=== PATIENT | female | born 1995 | race Caucasian/White ===

== ENCOUNTER 2021-06-06 08:53 | Day surgery (SDC) | payer OTHER ==
[2021-06-03 08:26] VITALS: BMI 20.5
[~2021-06-06 08:53] MED LIST: LACTATED RINGERS 1,000 ML IV SCH
[2021-06-06 09:30] VITALS: BP 141/88; PULSE 69; RESP 16; TEMP 97.4
== END 2021-06-06 09:55 | disposition home or self-care (01) ==
LOC: ORWHC2ENDO 08:53 → MERGE 08:53 → ORWHC2ENDO 09:55
PROVIDERS: ATTEND Surgery
DX: K62.5 Hemorrhage of anus and rectum (principal); Z53.8 Procedure and treatment not carried out for other reasons

== ENCOUNTER 2022-02-14 08:00 | Inpatient (IN) | payer OTHER ==
[2022-02-15] MEDS ORDERED: TERBUTALINE 1 MG/ML VIAL SQ PRN (06:37)
[2022-02-15] MEDS ORDERED: LIDOCAINE 0.5% (PF) 5 MG/ML (50 ML SDV) SQ PRN (06:37)
[2022-02-15] MEDS ORDERED: OXYTOCIN 10 UNIT/ML 1 ML VIAL IM PRN (06:37)
[2022-02-15] MEDS ORDERED: CARBOPROST TROMETHAMINE 250 MCG/ML 1 ML AMP IM PRN (06:37)
[2022-02-15] MEDS ORDERED: METHYLERGONOVINE 0.2 MG/ML 1 ML AMP IM PRN (06:37)
[2022-02-15] MEDS ORDERED: OXYTOCIN 30 UNITS/500 ML NS 30 UNIT in SALINE 1 500ML.BAG IV SCH ×2 (06:45→15:30)
[2022-02-15] MEDS: LACTATED RINGERS 1,000 ML IV SCH ×3 (06:53→12:55)
[2022-02-15 07:25] LABS: Basophils # (A) 0.1 k/uL (0-0.2); Basophils % (A) 1 %; Eosinophils # (A) 0.4 k/uL (0-0.7); Eosinophils % (A) 3 %; HCT 34.6 % (34.0-46.0); HGB 11.4 gm/dL (11.4-16.0); Lymphocytes % (A) 17 %; MCH 31.6 pg (25.0-35.0); MCV 95.8 fL (80.0-100.0); Mean Platelet Volume 10.2; Monocytes # (A) 0.6 k/uL (0-1.0); Monocytes % (A) 5 %; Neutrophils # (A) 8.7 k/uL (1.3-7.7); Neutrophils % (A) 73 %; Platelet Count 176 k/uL (150-450); RBC 3.61 m/uL (3.80-5.40); RDW 13.4 % (11.5-15.5); WBC 11.9 k/uL (3.8-10.6)
--- NOTE | 2022-02-15 07:33 | P.HPOB ---
History of Present Illness H&P Date: 02/15/22 Chief Complaint: induction of labor 26 year old G to P1 presents at 39 weeks and 3 days for induction of labor. Her cervix is 2 cm, 70% effaced, -2 station. She is clarice irregularly. heart tones are 135 with moderate variability and reactive. Patient did have a with her last after getting 8 cm. We discussed risks and benefits and alternatives of vaginal after . Patient understands the risks and will continue with induction. Review of Systems All systems: negative Constitutional: Denies chills, Denies fever Eyes: denies blurred vision, denies pain Ears, nose, mouth and throat: Denies headache, Denies sore throat Cardiovascular: Denies chest pain, Denies shortness of breath Respiratory: Denies cough Gastrointestinal: Denies abdominal pain, Denies diarrhea, Denies nausea, Denies vomiting Genitourinary: Denies dysuria, Denies hematuria Musculoskeletal: Denies myalgias Integumentary: Denies pruritus, Denies rash Neurological: Denies numbness, Denies weakness Psychiatric: Denies anxiety, Denies depression Endocrine: Denies fatigue, Denies weight change Past Medical History Past Medical History: No Reported History Additional Past Medical History / Comment(s): Hx low iron and Hx Chase. History of Any Multi-Drug Resistant Organisms: None Reported Past Surgical History: Section Additional Past Surgical History / Comment(s): Section X1. Past Anesthesia/Blood Transfusion Reactions: No Reported Reaction Past Psychological History: No Psychological Hx Reported Smoking Status: Current every day smoker Past Alcohol Use History: Occasional Additional Past Alcohol Use History / Comment(s): Has been smoking for 6 months, 1/2 PPD. Past Drug Use History: None Reported - Past Family History Mother Family Medical History: Cancer, Diabetes Mellitus, Hypertension Additional Family Medical History / Comment(s): Skin cancer. Medications and Allergies Home Medications Medication Instructions Recorded Confirmed Type Vit No.179/Iron/Folic 1 tab PO DAILY 02/15/22 02/15/22 History [ Tablet] Allergies Allergy/AdvReac Type Severity Reaction Status Date / Time Antibiotic(Can't remember Allergy Rash/Hives Uncoded 02/15/22 06:35 name) Exam Osteopathic Statement: *. No significant issues noted on an osteopathic structural exam other than those noted in the History and Physical/Consult. Vital Signs Temp Pulse Resp BP 02/15/22 06:18 98.4 F 82 18 115/67 Intake and Output 02/14/22 02/15/22 02/15/22 22:59 06:59 14:59 Other: Weight 68.039 kg Heart: Regular rate and rhythm Lungs: Clear to auscultation bilaterally Abdomen: Soft, nontender Extremities: Negative Homans sign Results Result Diagrams: 02/15/22 06:50 Abnormal Lab Results - Last 24 Hours (Table) 02/15/22 Range/Units 06:50 WBC 11.9 H (3.8-10.6) k/uL RBC 3.61 L (3.80-5.40) m/uL Neutrophils # 8.7 H (1.3-7.7) k/uL Assessment and Plan (1) Previous section Current Visit: Yes Status: Acute Code(s): Z98.891 - HISTORY OF UTERINE SCAR FROM PREVIOUS SURGERY SNOMED Code(s): 123521013 (2) 39 weeks gestation of Current Visit: Yes Status: Acute Code(s): Z3A.39 - 39 WEEKS GESTATION OF SNOMED Code(s): 90307800 Plan: 1. Induction of labor with amniotomy and Pitocin 2. Anticipate normal vaginal delivery
[2022-02-15] MEDS ORDERED: ROPIVACAINE 100 MG, fentaNYL (PF). 200 MCG in SODIUM CHLORIDE 0.9% 76 ML EPIDURAL ONE (13:08)
[2022-02-15] MEDS ORDERED: diphenhydrAMINE 25 MG CAP PO PRN (15:24)
[2022-02-15] MEDS ORDERED: BENZOCAINE/MENTHOL SPRAY 1 GM/SPRAY AEROSOL TOPICAL PRN (15:24)
[2022-02-15] MEDS ORDERED: diphenhydrAMINE 50 MG/ML 1 ML VIAL IVP PRN ×2 (15:24)
[2022-02-15] MEDS ORDERED: ZOLPIDEM 5 MG TAB PO PRN (15:24)
[2022-02-15] MEDS ORDERED: SIMETHICONE 80 MG CHEWABLE PO PRN (15:24)
[2022-02-15] MEDS ORDERED: diphenhydrAMINE 50 MG CAP PO PRN (15:24)
[2022-02-15] MEDS ORDERED: HYDROCORTISONE 2.5% RECTAL CREAM 30 GM TUBE RECTAL PRN (15:24)
[2022-02-15] MEDS ORDERED: LANOLIN CREAM 5 GM TUBE TOPICAL PRN (15:24)
[2022-02-15] MEDS: IBUPROFEN 600 MG TAB PO PRN (15:47)
[2022-02-15] MEDS: ACETAMINOPHEN TAB 325 MG TAB PO PRN (20:04)
[2022-02-15] MEDS: SENNOSIDES-DOCUSATE SODIUM 1 EACH TAB PO SCH (20:04)
[2022-02-15 20:50] VITALS: PULSE 72
[2022-02-16] MEDS: IBUPROFEN 600 MG TAB PO PRN (04:18)
[2022-02-16] MEDS: LACTATED RINGERS 1,000 ML IV SCH (06:29)
[2022-02-16] MEDS: SENNOSIDES-DOCUSATE SODIUM 1 EACH TAB PO SCH (07:57)
[2022-02-16 08:18] LABS: Basophils % (A) 0 %; Eosinophils # (A) 0.2 k/uL (0-0.7); Eosinophils % (A) 1 %; HCT 28.8 % (34.0-46.0); Lymphocytes # (A) 2.1 k/uL (1.0-4.8); Lymphocytes % (A) 16 %; MCH 33.3 pg (25.0-35.0); MCHC 34.4 g/dL (31.0-37.0); MCV 97.1 fL (80.0-100.0); Mean Platelet Volume 10.2; Monocytes # (A) 0.5 k/uL (0-1.0); Monocytes % (A) 4 %; Neutrophils # (A) 9.5 k/uL (1.3-7.7); Neutrophils % (A) 76 %; Platelet Count 167 k/uL (150-450); RBC 2.97 m/uL (3.80-5.40); RDW 13.9 % (11.5-15.5); WBC 12.5 k/uL (3.8-10.6)
[2022-02-16 08:22] LABS: HGB 9.9 gm/dL (11.4-16.0)
--- NOTE | 2022-02-16 09:17 | P.PROBDLV ---
Vaginal Delivery Note - . Vaginal Delivery Note: 26 year old G 2 P1 presents at 39 weeks and 3 days for induction of labor. Her cervix is 2 cm, 70% effaced, -2 station. She is clarice irregularly. heart tones are 135 with moderate variability and reactive. Pitocin was started and amniotomy performed at 7:10 AM clear fluid noted. Patient was uncomfortable and did get an epidural. Cervix was completely dilated at 1445. She pushed, delivered a viable female infant over intact perineum under epidural anesthesia at 1455. Head delivered OA, nuchal cord 1 easily reduced, anterior shoulder delivered gentle downward guidance followed by posterior shoulder and rest of body. Nose and mouth bulb suctioned cord clamped and cut, infant placed mother's abdomen. Apgars 9, 9, weight 6 lbs. 10 oz. Placenta delivered spontaneously, intact with three-vessel cord at 1457. Vagina, cervix, and perineum were inspected. First-degree right perineal laceration and bilateral labial lacerations repaired with 3-0 Vicryl. Estimated blood loss 200 mL. Mother and baby in stable condition.
--- NOTE | 2022-02-16 09:18 | P.DS ---
Providers Date of admission: 02/15/22 06:05 Expected date of discharge: 02/16/22 Attending physician: Francisca Seth Primary care physician: Stated None - Discharge Diagnosis(es) (1) Previous section Current Visit: Yes Status: Resolved (2) 39 weeks gestation of Current Visit: Yes Status: Resolved (3) Vaginal after Current Visit: Yes Status: Acute Hospital Course: Patient presented for induction of labor. Generally normal vaginal delivery. course on, K. She denies nausea, vomiting, chest pain, shortness of breath or any calf pain. Patient will be discharged home day #1 in stable condition to follow-up with me in 6 weeks. Plan - Discharge Summary New Discharge Prescriptions: New Ibuprofen [Motrin] 600 mg PO Q6HR PRN #30 tab PRN Reason: Mild Pain (Scale 1 To 3) No Action Vit No.179/Iron/Folic [ Tablet] 1 tab PO DAILY Discharge Medication List Vit No.179/Iron/Folic [ Tablet] 1 tab PO DAILY 02/15/22 [History] Ibuprofen [Motrin] 600 mg PO Q6HR PRN #30 tab 02/16/22 [Rx] Follow up Appointment(s)/Referral(s): Francisca Seth DO [Doctor of Osteopathic Medicine] - 04/03/22 3:45 pm Discharge Disposition: HOME SELF-CARE
[2022-02-16 09:45] VITALS: BP 112/73; RESP 15; TEMP 98.3
[2022-02-16] MEDS: ACETAMINOPHEN TAB 325 MG TAB PO PRN (10:11)
== END 2022-02-16 16:15 | disposition home or self-care (01) | DRG 807 ==
LOC: 4FBP 02-15 06:05
PROVIDERS: ADMIT Obstetrics & Gynecology; ATTEND Obstetrics & Gynecology
PROC: 10E0XZZ Delivery of Products of Conception, External Approach (ICD-10-PCS; principal; 2022-02-16)
PROC: 0HQ9XZZ Repair Perineum Skin, External Approach (ICD-10-PCS; 2022-02-16)
PROC: 10907ZC Drainage of Amniotic Fluid, Therapeutic from Products of Conception, Via Natural or Artificial Opening (ICD-10-PCS; 2022-02-16)
PROC: 3E033VJ Introduction of Other Hormone into Peripheral Vein, Percutaneous Approach (ICD-10-PCS; 2022-02-16)
PROC: 4A0HXCZ Measurement of Products of Conception, Cardiac Rate, External Approach (ICD-10-PCS; 2022-02-16)
PROC: 0UQMXZZ Repair Vulva, External Approach (ICD-10-PCS; 2022-02-16)
DX: O34.211 Maternal care for low transverse scar from previous cesarean delivery (principal); Z37.0 Single live birth; O71.82 Other specified trauma to perineum and vulva; O69.81X0 Labor and delivery complicated by cord around neck, without compression, not applicable or unspecified; O70.0 First degree perineal laceration during delivery; O99.334 Smoking (tobacco) complicating childbirth; Z3A.39 39 weeks gestation of pregnancy
CPT/HCPCS: 85025; 86850; 86900; 86901